=== PATIENT | female | born 1960 | race Caucasian/White ===

== ENCOUNTER 2017-06-13 09:30 | Outpatient (CLI) | payer OTHER | END 2017-06-13 19:22 | disposition home or self-care (01) | LOC: SRD 09:30 | PROVIDERS: ATTEND Internal Medicine | DX: K57.30 Diverticulosis of large intestine without perforation or abscess without bleeding (principal); D50.9 Iron deficiency anemia, unspecified | CPT/HCPCS: 74270-TC ==